=== PATIENT | female | born 1995 | race Caucasian/White ===

== ENCOUNTER 2024-09-09 08:33 | Emergency (ER) | payer BC ==
[~2024-09-09] VITALS: Ht 170.2 cm; Wt 81.6 kg
[2024-09-09] MEDS ORDERED: ZOLOFT100 MG PO (08:54)
[2024-09-09] MEDS ORDERED: RINGERS SOLUTION,LACTATED 1,000 ML IV STA (10:30)
[2024-09-09] MEDS ORDERED: ONDANSETRON HCL 2 MG/ML VIAL IV STA (10:31)
[2024-09-09] MEDS ORDERED: FAMOtidine 10 MG/ML (4ML VIAL) IV STA (10:32)
[2024-09-09 11:00] LABS: HEMATOCRIT 40.9 % (36.0-45.00); HEMOGLOBIN 14.4 g/dL (12.0-15.00); MEAN CELL VOLUME 94.1 fL (80.00-100.00); MEAN CORPUSCULAR HEMOGLOBIN 33.2 pg (27.00-32.0); MEAN CORPUSCULAR HGB CONC 35.2 g/dl (32.0-36.0); PLATELET COUNT 244 K/uL (150-450); RED BLOOD COUNT 4.34 M/uL (4.00-6.00)
[2024-09-09 11:28] LABS: CALCIUM 9.1 mg/dL (8.5-10.1); CREATININE SERUM 0.48 mg/dL (0.55-1.02); GFR 151.85; POTASSIUM 3.59 mEq/L (3.5-5.1)
[2024-09-09 13:43] LABS: PH,URINE 7.5 (5.0-8.0); URINE APPEARANCE Turbid; URINE BILIRRUBIN Negative (NEGATIVE); URINE BLOOD Negative; URINE COLOR Yellow; URINE GLUCOSE Negative (NEGATIVE); URINE LEUKOCYTE Negative; URINE NITRATE Negative; URINE PROTEIN Trace (NEGATIVE)
[2024-09-09 13:46] LABS: URINE BACTERIA 1859.6 uL (0.0-1933); URINE EPITHELIAL CELLS 43.5 uL (0.0-38.8); URINE RBC 12.6 uL (0.0-20.8); URINE WBC 6.3 uL (0.0-23.2)
[2024-09-09 13:49] LABS: URINE KETONE 40 (NEGATIVE)
[2024-09-09] MEDS ORDERED: ONDANSETRON HCL 2 MG/ML VIAL IV ONE (16:15)
== END 2024-09-09 17:54 | disposition home or self-care (01) ==
LOC: ER 08:35
PROVIDERS: General Practice
DX: O21.0 Mild hyperemesis gravidarum (principal); Z3A.09 9 weeks gestation of pregnancy